=== PATIENT | female | born 1985 | race Two or more races ===

== ENCOUNTER 2024-04-18 08:39 | Emergency (ER) | payer SELFPAY ==
[~2024-04-18] VITALS: Ht 152.4 cm; Wt 79.5 kg
[2024-04-18 08:43] VITALS: BP 137/83; PULSE 100; RESP 20; TEMP 98.1
[2024-04-18] MEDS ORDERED: METF-1211 PO (08:45)
[2024-04-18] MEDS ORDERED: PENI500T2 PO (09:15)
[2024-04-18] MEDS ORDERED: IBUP-1492 PO (09:15)
[2024-04-18] MEDS: PENICILLIN V POTASSIUM 500 MG TABLET PO ONE (09:18)
[2024-04-18] MEDS: OxyCODONE HCL/ACETAMINOPHEN 5-325 MG TABLET PO ONE (09:18)
[2024-04-18] MEDS: KETOROLAC TROMETHAMINE 60 MG/2 ML VIAL IM ONE (09:18)
== END 2024-04-18 09:51 | disposition home or self-care (01) ==
LOC: EMS 08:39
DX: K02.9 Dental caries, unspecified (principal)
CPT/HCPCS: 99283; 82962; 96372; J1885

== ENCOUNTER 2024-08-17 15:49 | Emergency (ER) | payer OTHER ==
[~2024-08-17] VITALS: Ht 144.8 cm; Wt 81.8 kg
[~2024-08-17 15:49] MED LIST: IBUP-1492 PO; METF-1211 PO; PENI500T2 PO
[2024-08-17] MEDS: ONDANSETRON HCL 4 MG/2 ML VIAL IM ONE (17:40)
[2024-08-17] MEDS: METHOCARBAMOL 500 MG TABLET PO ONE (17:40)
[2024-08-17] MEDS: KETOROLAC TROMETHAMINE 60 MG/2 ML VIAL IM ONE (17:40)
[2024-08-17] MEDS: HYDROmorphone HCL 2 MG/ML SYRINGE IM ONE (17:40)
[2024-08-17] MEDS ORDERED: IBUP-1554 PO (19:19)
[2024-08-17] MEDS ORDERED: ACET-2080 PO (19:20)
[2024-08-17] MEDS ORDERED: METH-659 PO (19:20)
[2024-08-17 19:44] VITALS: BP 129/70; PULSE 83; RESP 16; TEMP 97.9; O2SAT 99
== END 2024-08-17 20:36 | disposition home or self-care (01) ==
LOC: EMS 15:49
DX: S39.012A Strain of muscle, fascia and tendon of lower back, initial encounter (principal); S13.9XXA Sprain of joints and ligaments of unspecified parts of neck, initial encounter; E11.9 Type 2 diabetes mellitus without complications; Z90.49 Acquired absence of other specified parts of digestive tract; V49.40XA Driver injured in collision with unspecified motor vehicles in traffic accident, initial encounter; Y93.89 Activity, other specified; Y92.410 Unspecified street and highway as the place of occurrence of the external cause; Y99.8 Other external cause status
CPT/HCPCS: 99284; 71045; 84703; 72040; 72070; 72100; 82962; 96372; J1171; J1885; J2405

== ENCOUNTER 2024-11-18 12:27 | Emergency (ER) | payer OTHER ==
[2024-08-17 19:44] VITALS: BP 129/70; PULSE 83; RESP 16; O2SAT 99
[~2024-11-18 12:27] MED LIST changes: +ACET-2080 PO; -IBUP-1492 PO; +IBUP-1554 PO; +METH-659 PO; -PENI500T2 PO
== END 2024-11-18 16:11 | disposition left against medical advice (07) ==
LOC: EMS 12:32
DX: M54.50 Low back pain, unspecified (principal); Z53.21 Procedure and treatment not carried out due to patient leaving prior to being seen by health care provider
CPT/HCPCS: 82962